=== PATIENT | female | born 1995 | race Hispanic/Latino ===

== ENCOUNTER 2021-12-11 17:51 | Emergency (ER) | payer BC, OTHER ==
--- OUTSIDE RECORDS SUMMARY | 2021-12-11 17:55 | XMS REPORT | Continuity of Care Document ---
:1995 Author Organization [facility] t Address [address] [place] [address] Dr. Singer. [address] [place] [address] Care Team Providers Name Role Phone KNOW, DOES_NOT Attending Clinician Unavailable Brittani Marrufo Attending Clinician Unavailable Seven Saini MD Attending Clinician SEVEN SAINI Attending Clinician Unavailable KNOW, DOES_NOT Admitting Clinician Unavailable Brittani Marrufo Admitting Clinician Unavailable Payers Payer Name Policy Type Policy Number Effective Date Expiration Date S ource Problems This patient has no known problems. Allergies, Adverse Reactions, Alerts Allergy Allergy Status Severity Reaction(s) Onset Inactive Treating Comm ents Source Name Type Date Date Clinician No Known DA Active U 2020-0 [facility] All[facility]ie 10-09 Clear s 00:00: Cloud [address] [facility] No Known DA Active U 2020-0 [facility] Allergie 10-09 Clear s 00:00: Cloud [address] [facility] NO KNOWN Drug Active Univers ALLERGIE Class ity of S [facility] Social History Social Habit Start Date Stop Date Quantity Comments Source Exposure to Not sure [facility] SARS-[facility]-2 (event) [facility] Sex Assigned At [birth year] [facility] 00:00:00 00:00:00 [facility] Smoking Status Start Date Stop Date Source Unknown if ever smoked [facility] Medications Ordered Filled Start Stop Current Ordering Indication Dosage Frequency Signature Comments Components Source Medication Medication Date Date Medication? Clinician (SIG) Name Name ondansetron Yes [id number] 4mg Take 1 Univers 4 mg 5-04 tablet by ity of disintegrat 00:00: mouth [place] ing tablet 00 every 4 Medica l (four) Branch hours as needed for Nausea and Vomiting (N/V). Immunizations Ordered Filled Immunization Date Status Comments Sourc e Immunization Name Name SARS-COV-2 COVID-19 2020-08-12 Completed Unive rsity of MODERNA VACCINE 00:00:00 [facility] SARS-COV-2 COVID-19 2020-07-15 Completed Unive rsity of MODERNA VACCINE 00:00:00 [facility] Vital Signs Vital Name Observation Time Observation Value Comments Source Systolic blood 2020-09-08 13:20:00 111 mm[Hg] Univer sity of pressure [facility] Diastolic blood 2020-09-08 13:20:00 74 mm[Hg] Unive rsity of pressure [facility] Heart rate 2020-09-08 13:20:00 92 /min [facility] Body temperature 2020-09-08 13:20:00 37.33 [facility] Respiratory rate 2020-09-08 13:20:00 16 /min [facility] Body height 2020-09-08 13:20:00 175.3 cm [facility] Body weight 2020-09-08 13:20:00 113.399 kg [facility] BMI 2020-09-08 13:20:00 36.92 kg/m2 [facility] Oxygen saturation in 2020-09-08 13:20:00 96 /min [facility] Arterial blood by [facility] Pulse oximetry Branch Procedures Procedure Date / Time Performed Performing Clinician Sour e NOTICE OF PRIVACY 2020-09-08 13:09:02 [facility]igned, [facility] CONSENT/REFUSAL FOR 2020-09-08 13:08:50 Doctor Unassigned, [facility] AND Name Medical Branch TREATMENT [id number] 2019-10-30 00:00:00 [facility] [id number] 2019-10-30 00:00:00 [facility] Encounters Start End Encounter Admission Attending Care Care Encounter Source Date/Time Date/Time Type Type Clinicians Facility Department ID 2019-10-31 Inpatient JACKELIN MATRINEZ LD [id number] [facility] 02:44:00 DOES_NOT [id number] [facility] 2019-10-29 Inpatient JACKELIN Ramírez LD [id number] [facility] 00:21:00 Brittani [id number] [facility] 2019-10-28 Inpatient JACKELIN Ramírez LD [id number] [facility] 13:57:00 Brittani [id number] [facility] 2019-10-10 Inpatient JACKELIN Marrufo KRISS [id number] [facility] 11:43:00 Brittani [facility] 2020-09-08 2020-09-08 [facility] [id number] Univers 08:23:00 09:06:00 Seven Parekh [id number] i [facility] [id number] [facility] [id number] [place] [address] Branch 2020-09-08 2020-09-08 Emergency X [facility] ERT [id number] Univers 08:23:00 08:23:00 SEVEN fair [facility] 2019-10-25 2019-10-25 Outpatient REED Marrufo LABO [id number] [facility] 18:04:00 18:04:00 Brittani [id number] [facility] 2019-10-24 2019-10-24 Emergency EM JACKELIN Marrufo KRISS [id number] [facility] 12:33:00 14:45:00 Brittani [id number] [facility] Results Test Description Test Time Test Comments Results Result Comments Source [facility] 2019-11-06 TRIMESTER 09:18:00 RUN DATE: 11/06/19 [facility] PAGE 1 RUN TIME: 1400 Specimen Inquiry RUN USER: INTERFACE CYRUS MCDONALDNT: RIANA MELISSA LOC: CHRISTIN U #: [id number] AGE/SX: ROOM: [facility] RE10/29/19REG DR: Brittani Marrufo MD : 89 BED: A DIS: 10/31/19 STATUS: DIS IN TLOC: SPEC #: [id number] RECD: 10/31/19-958 STATUS: MEÑODilia JIMENEZ #: [id number] LAINA: 10/30/19- [facility] DR: Brittani Marrufo MD ENTERED: 10/31/19 SP TYPE: PLACIII OTHR DR: Zofia Villalta MD ORDERED: LEVEL V SURGICA CODES: [id number] - PLACENTA, NOS COPIES TO: Zofia Villalta MD [address], [address] [place] [address] Brittani Marrufo MD [address] [place] [address] PROCEDURES: LEVEL V SURGICA (Incomplete) TISSUES: PLACENTA, NOS - PLACENTA CLINICAL HISTORY 24 year old, 39.6 weeks, , vaginal delivery, abnormal cord insertion (kr) FINAL DIAGNOSIS Placenta, delivery: - placenta with third trimester morphology (360 gms), mean placental weight at 39 weeks - 500 gms (approximately 7th percentile) - accelerated villous maturation with multifocal increase in the syncytial knots, suggestive of hypoperfusion - intervillous fibrin thrombi, multifocal, peripheral, accounting for less than 2% of the total placental parenchyma - trivascular umbilical cord with eccentric insertion, free of inflammation - membranes - free of inflammation CPT code(s): 42832 pk/wpd CONTINUED ON NEXT PAGE RUN DATE: 11/06/19 [facility] PAGE 2 RUN TIME: 1400 Specimen Inquiry RUN USER: INTERFACE SP EC #: [id number] PATIENT: RIANA MELISSA #[id number] (Continued)-------- -------- GROSS DESCRIPTION The specimen was received in a container, labeled with the patient's name, unit number and designated "placenta". The following attributes are observed: Cord insertion: 3.0 cm from margin Cord length: 30 cm Number of vessels: 3 Cord color: Guidry-white Other cord findings: None surface findings: Blue-dominguez, wrinkled, glistening Vasculature: Displays unremarkable blood vasculature Membranes rupture site: 7.0 cm to margin Membrane color: Guidry-pink Other membrane findings: Semi-translucent The trimmed placental weight: 360 gm Disk measurement: 15.5 x 13.0 x 3.5 cm in greatest dimension Accessory lobes: None Maternal surface: Lobulated and intact Parenchyma: Red-brown and spongy Parenchyma lesions: Multiple yellow-pink lesions ranging from 0.5 to 1.5 cm at the periphery, less than 2% of the total cut surface Cassettes: A1 through A4 tae/justus 10/31/19 MICROSCOPIC DESCRIPTION The placenta is composed of small vascular villi. Multifocal intervillous fibrin thrombi are present in the periphery. The trivascular umbilical cord and membranes are free of inflammation. pkg/wpd ---- Signed Silva Santana 11/06/19 0918 END OF REPORT Coronavirus 2019 nCoV Bedside 2019-10-29 08:13:00 Test Item Value Reference Range Interpretation Comme nts Coronavirus 2019 nCoV Bedside Negative Negative RESULTS CALLED TO SPEEDY LENNON (test code = COVNONPUIBED) & CONFIRMED? JAELYN MICHAELS.ELB1 10/29/19 0812 T his result does not rule out co-inf ections with otherpathogens. * False negative results may occ ur if a specimen isimproperly co llected, transported or handled. Fal se negativeresults may also occur if amplification inhibitors arep resent in the specimen or if inadequate levels of virusesare pres ent in the specimen. Negative result s should beconsidered in the context of a patient's recen t exposures,history and the presenc e of clinical signs and symptomscon sistent with COVID-19. * Neg ative results should be treated as p resumptive andtested with an alterna tive FDA authorized molecular assay if necessary for clinical managm ent, including infectioncontro l. * As with any molecular test, mutations within the target regions Landeros ID NOW COVID-19 test c ould affect primerand/or pr obe binding resulting in fa ilure to detect therescence of the virus.TEST PERFORMED UNDER AN EMERGENCY USE AUTHORIZATION F ROM FDA AG HEPATITIS B [id number] 04:55:00 Test Item Value Reference Range Interpretation Comments AG HEPATITIS B SURFACE (test code NONREACTIVE NONREACTIVE = HBSAG) IS CONSENT FORM SIGNED FOR HIV TESTING? YAB HEPATITIS C [id number] 04:55:00 Test Item Value Reference Range Interpretation Comments AB HEPATITIS C (test code = NONREACTIVE NONREACTIVE HCVAB) SIGNAL TO CUTOFF (test code = <0.02 <0.80 N CUTOFF) IS CONSENT FORM SIGNED FOR HIV TESTING? YAB [id number] 04:55:00 Test Item Value Reference Range Interpretation Comments AB TREPONEMA (test code = TREPAB) NONREACTIVE NONREACTIVE IS CONSENT FORM SIGNED FOR HIV TESTING? YAB HIV 1 04:55:00 Test Item Value Reference Range Interpretation Comments AB HIV 1 2 (test NONREACTIVE NONREACTIVE Done by [facility] code = [id number]) 4th Gen HIV Ag/Ab Combo Screen IS CONSENT FORM SIGNED FOR HIV TESTING? YAG HEPATITIS B [id number] 04:37:00 Test Item Value Reference Range Interpretation Comments AG HEPATITIS B SURFACE (test code NONREACTIVE NONREACTIVE = HBSAG) IS CONSENT FORM SIGNED FOR HIV TESTING? YAB HEPATITIS C [id number] 04:37:00 Test Item Value Reference Range Interpretation Comments AB HEPATITIS C (test code = HCVAB) NONREACTIVE SIGNAL TO CUTOFF (test code = CUTOFF) <0.80 IS CONSENT FORM SIGNED FOR HIV TESTING? YAB [id number] 04:37:00 Test Item Value Reference Range Interpretation Comments AB TREPONEMA (test code = TREPAB) NONREACTIVE NONREACTIVE IS CONSENT FORM SIGNED FOR HIV TESTING? YAB HIV 1 04:37:00 Test Item Value Reference Range Interpretation Comments AB HIV 1 2 (test code = [id number]) NONREACTIVE IS CONSENT FORM SIGNED FOR HIV TESTING? YCHEMISTRY 7 [id number] 01:14:00 Test Item Value Reference Range Interpretation Comments SODIUM (test code = NA) 139 mEq/L 135-145 N POTASSIUM (test code = K) 4.2 mEq/L 3.5-5.0 N CHLORIDE (test code = CL) 105 mEq/L 100-115 N CARBON DIOXIDE (test code = CO2) 21 mEq/L 22-31 L ANION GAP (test code = GAP) 16.80 10-20 N GLUCOSE (test code = GLU) 109 mg/dL 65-110 N BLOOD UREA NITROGEN (test code = 9 mg/dL 7-18 N BUN) GLOMERULAR FILTRATION RATE (test 103 ml/min >60 N code = GFR) CREATININE (test code = CREAT) 0.7 mg/dL 0.5-1.0 N CALCIUM (test code = CA) 8.6 mg/dL 8.4-10.2 N [id number] 01:14:00 Test Item Value Reference Range Interpretation Comments SGOT/AST (test code = AST) 16 units/L 15-37 N [id number] 01:14:00 Test Item Value Reference Range Interpretation Comments SGPT/ALT (test code = ALT) 11 units/L 12-78 L CBC W/AUTO [id number] 01:06:00 Test Item Value Reference Range Interpretation Comments WHITE BLOOD CELL (test code = WBC) 10.2 K/mm3 6.6-12.1 N RED BLOOD CELL (test code = RBC) 3.81 M/mm3 3.45-5.01 N HEMOGLOBIN (test code = HGB) 9.5 g/dL 10.7-13.9 L HEMATOCRIT (test code = HCT) 30.8 % 32.1-42.1 L MEAN CELL VOLUME (test code = MCV) 81 fL 84.1-94.8 L MEAN CELL HGB (test code = MCH) 24.9 pg 27-35 L MEAN CELL HGB CONCETRATION (test 30.8 gm/dL 32.2-34.1 L code = MCHC) RED CELL DISTRIBUTION WIDTH (test 15.7 % 12.4-16.5 N code = RDW) PLATELET COUNT (test code = PLT) 204 K/mm3 133-385 N MEAN PLATELET VOLUME (test code = 12.7 fl 9.1-12.7 N MPV) NEUTROPHIL % (test code = NT%) 69.8 % 56.5-79.4 N LYMPHOCYTE % (test code = LY%) 21.6 % 14.3-34.3 N MONOCYTE % (test code = MO%) 6.5 % 5.1-10.4 N EOSINOPHIL % (test code = EO%) 0.9 % 0.1-3.0 N BASOPHIL % (test code = BA%) 0.3 % 0.1-1.0 N NEUTROPHIL # (test code = NT#) 7.1 K/mm3 LYMPHOCYTE # (test code = LY#) 2.2 K/mm3 MONOCYTE # (test code = MO#) 0.7 K/mm3 EOSINOPHIL # (test code = EO#) 0.09 K/mm3 BASOPHIL # (test code = BA#) 0.0 K/mm3 RBC MORPHOLOGY REQUIRED (test code NORMAL NORMAL = RBCM) PLATELET MORPHOLOGY REQUIRED (test NORMAL NORMAL code = PLTMR) Novel Coronavirus 2019 [id number] 00:36:00 Test Item Value Reference Range Interpretation Comments Novel Coronavirus 2019 Inhouse (test Negative Negative code = COVNONPUI) Novel Coronavirus 2019 [id number] 00:36:00 Test Item Value Reference Range Interpretation Comments Novel Coronavirus 2019 Inhouse (test Negative Negative code = COVNONPUI) UR PROTEIN/CREATININE [id number] 13:54:00 Test Item Value Reference Range Interpretation Comments UR PROTEIN RANDOM (test code = 35.8 mg/dL PROTU) UR CREATININE RANDOM (test 342.1 mg/dL code = CREATU) PROTEIN/CREATININE RATIO (test 100.0 mg/gcrea <200 code = P/CRATIO) [id number] 13:54:00 Test Item Value Reference Range Interpretation Comments SGOT/AST (test code = AST) 11 units/L 15-37 L [id number] 13:54:00 Test Item Value Reference Range Interpretation Comments SGPT/ALT (test code = ALT) 10 units/L 12-78 L CBC W/AUTO [id number] 13:27:00 Test Item Value Reference Range Interpretation Comments WHITE BLOOD CELL (test code = WBC) 9.1 K/mm3 6.6-12.1 N RED BLOOD CELL (test code = RBC) 3.81 M/mm3 3.45-5.01 N HEMOGLOBIN (test code = HGB) 9.5 g/dL 10.7-13.9 L HEMATOCRIT (test code = HCT) 30.9 % 32.1-42.1 L MEAN CELL VOLUME (test code = MCV) 81 fL 84.1-94.8 L MEAN CELL HGB (test code = MCH) 24.9 pg 27-35 L MEAN CELL HGB CONCETRATION (test 30.7 gm/dL 32.2-34.1 L code = MCHC) RED CELL DISTRIBUTION WIDTH (test 15.9 % 12.4-16.5 N code = RDW) PLATELET COUNT (test code = PLT) 223 K/mm3 133-385 N MEAN PLATELET VOLUME (test code = 12.5 fl 9.1-12.7 N MPV) NEUTROPHIL % (test code = NT%) 79.7 % 56.5-79.4 H LYMPHOCYTE % (test code = LY%) 14.1 % 14.3-34.3 L MONOCYTE % (test code = MO%) 4.6 % 5.1-10.4 L EOSINOPHIL % (test code = EO%) 0.5 % 0.1-3.0 N BASOPHIL % (test code = BA%) 0.4 % 0.1-1.0 N NEUTROPHIL # (test code = NT#) 7.3 K/mm3 LYMPHOCYTE # (test code = LY#) 1.3 K/mm3 MONOCYTE # (test code = MO#) 0.4 K/mm3 EOSINOPHIL # (test code = EO#) 0.05 K/mm3 BASOPHIL # (test code = BA#) 0.0 K/mm3 RBC MORPHOLOGY REQUIRED (test code NORMAL NORMAL = RBCM) PLATELET MORPHOLOGY REQUIRED (test NORMAL NORMAL code = PLTMR) - US FET BIO PH OH W/O [id number] 13:45:00 Patient Name: RIANA MELISSA Unit No: [id number] EXAMS: CPT CODE: [id number] US FET BIO PH OH W/O NST [address] [facility] [address] [place], [place] [address] OBSTETRICAL BIOPHYSICAL ULTRASOUND REPORT Pat. Name: RIANA MELISSA Pat. No: [id number] Study Date: 10/10/2019 12:28pm , Age: 05 1995, 24 Pregnancies: 1 LMP: Unknown GA by US: 37w1d GA Selected: 37w0d (From Known E) TRE: 10/31/2019 Referring MD: BRITTANI MARRUFO Pododermatologist: Lizeth Saenz RDMS, T CPT4: USBPPWONST Admitting MD: BRITTANI MARRUFO Hist/Ind: SCAN 1 DECREASED MOVEMENT GROWTH MEASUREMENTS AGE GROWTH EVALUATION Measurement GA Range Srce %for GA Ratios ----- ---- ------- BPD 9.1 cm 37w3d (25g0y-80b4x) Hadl BPD 57% FL/BPD 0.80 (0.71 - 0.87) HC 33.3 cm 37w4d (91r3k-59i3o) Hadl HC 59% FL/AC0.22 (0.20 - 0.24) APD 10.3 cm APD HC/AC 1.00 (0.91 - 1.10) TAD 11.0 cm TAD CI 0.80 (0.70 - 0.86) AC33.5 cm 37w4d (48m9s-03x0o) Hadl AC 61% FL 7.3 cm 37w2d (55y5o-13g7w) Hadl FL 53% HL 6.4 cm 37w1d (05c1y-73o5j) Tripp HL 52% GA for sonogram 37w1d (09s3d-43k8q) Weight Estimate: based on (BPD,HC,AC,FL) Hadlock Weight: 3199 gm (1287-9468) Hadlo : 7lbs, 0oz Normal: 2870 gm (3815-7960) Brenn Wt% 72% for 37.0 wks Cervical Length: 3.2 cm Heart Rate: 150 bpm Amniotic Fluid Index: 11.0cm (07.5-24 .4) Q1: 2.7cm Q2: 4.3cm Q3: 1.9cm Q4: 2.1cm Biophysical Profile: 12/13 Breathin Tone: 2 Movement: 2 AFV: 2 DOPPLER Umbilical - Insertion S/D 3.10(2.80 - 3.80) Umbilical - Placental Insertion S/D 1.80(1.60 - 2.60) Umbilical - Mid Cord S/D 2.60 MATERNAL ANATOMY [facility] NAME: RIANA MELISSA Radiology Department PHYS: Brittani Marrufo [address] :1995 AGE: 24 SEX: F [place], [place] [address] LOC: HeatherKRISS PHONE #: [phone] EXAM DATE: 10/10/2019 STATUS: REG ER FAX #: [phone] RAD NO: Page 1 Signed Report (CONTINUED) Patient Name: RIANA MELISSA Unit No: [id number] EXAMS: CPT CODE: [id number] [facility] BIO PH OH W/O [id number] <Continued> Ovaries LxHxW (cm) Right 3.7 x 0.8 x 1.2 Vol: 1.9cc Left 3.5 x 1.3 x 2.2 Vol: 5.2cc CLINICAL SUMMARY Type of Gestation: Choe Intrauterine in vertex presentation. size is appropriate for gestational age. motion and organs seen: heart motion seen Placental location: Anterior Placental maturity : Grade 3 There is no evidence of placenta previa. Amniotic fluid volume is normal. Uterus and adnexa: No significant abnormality is seen. Umbilical artery doppler S/D ratio is normal. Gabriela Bojorquez M.D. --------- Electronic Signature 10/10/2019 01:45pm at 1345 Reported and signed by: Gabriela Bojorquez MD CC: Brittani Marrufo MD Technologist: Lizeth Saenz RDMS, RVT Probe: Trnscrbd D/ (1345) [email or web address] Orig Print D/T: S: 10/10/2019 (1345) [facility] NAME: RIANA MELISSA Radiology Department PHYS: Brittani Monet [address] : 1995 AGE: 24 SEX: F [place] [address] LOC: HeatherKRISS PHONE #: [phone] EXAM DATE: 10/10/2019 STATUS: REG ER FAX #: [phone] RAD NO: Page 2 Signed Report Patient Name: RIANA MELISSA Unit No: [id number] EXAMS: CPT CODE: [id number] USFET BIO PH OH W/O NST [address]69 <Continued> [facility] NAME: RIANA MELISSA Radiology Department PHYS: Peng Monett Sandra [address] : 1995 AGE: 24 SEX: F [place] [address] LOC: HeatherKRISS PHONE #: [phone] EXAM DATE: 10/10/2019 STATUS: REG ER FAX #: [phone] RAD NO: Page 3 Signed Report- US FLW [id number] 13:45:00 Patient Name: RIANA MELISSA Unit No: [id number] EXAMS: CPT CODE: [id number] [place] [address] [place] [address] OBSTETRICAL BIOPHYSICAL ULTRASOUND REPORT Pat. Name: Patrizia MELISSA. No: [id number] Study Date: 10/10/2019 12:28pm , Age: 05 1995, 24 Pregnancies: 1 LMP: Unknown GA by US: 37w1d GA Selected: 37w0d (From Known E) TRE: 10/31/2019 Referring MD: Brittani Marrufo Pododermatologist: Lizeth Saenz RDMS, T CPT4: USPREGFU Admitting MD: Brittani Marrufo Hist/Ind: SCAN 1 DECREASED MOVEMENT GROWTH MEASUREMENTS AGE GROWTH EVALUATION Measurement GA Range Srce %for GA Ratios ----- ---- ------- BPD 9.1 cm 37w3d (57c8c-69c8e) Hadl BPD 57% FL/BPD 0.80 (0.71 - 0.87) HC 33.3 cm 37w4d (88x3u-35j8g) Hadl HC 59% FL/AC 0.22 (0.20 - 0.24) APD 10.3 cm APD HC/AC 1.00 (0.91 - 1.10) TAD 11.0 cm TAD CI 0.80 (0.70 - 0.86) AC 33.5 cm 37w4d (84e3r-95v3r) Hadl AC 61% FL 7.3 cm 37w2d (75c0h-60o5n) Hadl FL 53% HL 6.4 cm 37w1d (95q8c-53m3k) Tripp HL 52% GA for sonogram 37w1d (06o7x-63e3k) Weight Estimate: based on (BPD,HC,AC,FL) Hadlock Weight: 3199 gm (8413-1807) Hadlo : 7lbs, 0oz Normal: 2870 gm (7002-6739) Brenn Wt% 72% for 37.0wks Cervical Length: 3.2 cm Heart Rate: 150 bpm Amniotic Fluid Index: 11.0cm (07.5-24.4) Q1: 2.7cm Q2: 4.3cm Q3: 1.9cm Q4: 2.1cm Biophysical Profile: 12/13 Breathin Tone: 2 Movement: 2 AFV: 2 -- DOPPLER Umbilical - Insertion S/D 3.10(2.80 - 3.80) Umbilical - Placental Insertion S/D 1.80(1.60 - 2.60) Umbilical - Mid CordS/D 2.60 MATERNAL ANATOMY [facility] NAME: RIANA MELISSA Radiology Department PHYS: Brittani Monet [address] : 1995 AGE: 24 SEX: [place] [address] LOC: HeatherKRISS PHONE #: [phone] EXAM DATE: 10/10/2019 STATUS: DEP ER FAX #: [phone] RAD NO: Page 1 Signed Report (CONTINUED) Patient Name: RIANA MELISSA Unit No: [id number] EXAMS: CPT CODE: [id number] [place] [address] <Continued> Ovaries LxHxW (cm) Right 3.7 x 0.8 x 1.2 Vol: 1.9cc Left 3.5 x 1.3 x 2.2 Vol: 5.2cc -------- CLINICAL SUMMARY Type of Gestation: Choe Intrauterine in vertex presentation. size is appropriate for gestational age. motion and organs seen: heart motion seen Placental location: Anterior Placental maturity : Grade 3 There is no evidence of placenta previa. Amniotic fluid volume is normal. Uterus and adnexa: No significant abnormality is seen. Umbilical artery doppler S/D ratio is normal. Gabriela Bojorquez M.D. Electronic Signature 10/10/2019 01:45pm at 1345 Reported and signed by: Gabriela Bojorquez MD CC: Brittani Marrufo MD Technologist: Lizeth Saenz RDMS, RVT Probe: Trnscrbd D/ (1857) Mee Orig Print D/T: S: 10/11/2019 (5974) [facility] [place] [facility] NAME: RIANA MELISSA Radiology Department PHYS: J LUIS Mahoney [place] vas[place]ales [address] : 1995 AGE: 24 SEX: F [place], [place] [address] LOC: F.KRISS PHONE #: [phone] EXAM DATE: 10/10/2019 STATUS: DEP ER FAX #: [phone] RAD NO: Page 2 Signed Report Patient Name: RIANA MELISSA Unit No: [id number] EXAMS: CPT CODE: [id number] [place] [address] <Continued> [facility] NAME: RIANA MELISSA Radiology Department PHYS: BERTHA. - Brittani Marrufo [address] : 1995 AGE: 24 SEX: F [place], [place] [address] LOC: HeatherKRISS PHONE #: [phone] EXAM DATE: 10/10/2019 STATUS: DEP ER FAX #: [phone] RAD NO: Page 3 Signed Report- DOP VELOCITY UMBILCL [id number] 13:45:00 Patient Name: RIANA MELISSA Unit No: [id number] EXAMS: CPT CODE: [id number] DOP VELOCITY UMBILCL ART [address] [facility] [address] [place], [place] [address] OBSTETRICAL BIOPHYSICAL ULTRASOUND REPORT Pat. Name: RIANA MELISSA Pat. No: [id number] Study Date: 10/10/2019 12:28pm , Age: 05 1995, 24 Pregnancies: 1 LMP: Unknown GA by US: 37w1d GA Selected: 37w0d (From Known E) TRE: 10/31/2019 Referring MD: Brittani Marrufo Pododermatologist: Lizeth Saenz RDMS, RVT CPT4: COOPER Admitting MD: Brittani Marrufo Hist/Ind: SCAN 1 DECREASED MOVEMENT GROWTH MEASUREMENTS AGE GROWTH EVALUATION Measurement GA Range Srce %for GA Ratios ----- ---- ------- BPD 9.1 cm 37w3d (29x0v-99i8e) Hadl BPD 57% FL/BPD 0.80 (0.71 - 0.87) HC 33.3 cm 37w4d (17y0m-53b9v) Hadl HC 59% FL/AC0.22 (0.20 - 0.24) APD 10.3 cm APD HC/AC 1.00 (0.91 - 1.10) TAD 11.0 cm TAD CI 0.80 (0.70 - 0.86) AC33.5 cm 37w4d (35w1d- 40w1d) Hadl AC 61% FL 7.3 cm 37w2d (94x5f-33r4h) Hadl FL 53% HL 6.4 cm 37w1d (34 o0a-74g0x) Tripp HL 52% GA for sonogram 37w1d (21e5p-34r6y) Weight Estimate: based on (BPD,HC,AC,FL) Hadlock Weight: 3199 gm (1410-4884) Hadlo : 7lbs, 0oz Normal: 2870 gm (6162-4664) Brenn Wt% 72% for 37.0 wks Cervical Length: 3.2 cm Heart Rate: 150 bpm Amniotic Fluid Index: 11.0cm (07.5-24 .4) Q1: 2.7cm Q2: 4.3cm Q3: 1.9cm Q4: 2.1cm Biophysical Profile: 12/13 Breathin Tone: 2 Movement: 2 AFV: 2 DOPPLER Umbilical - Insertion S/D 3.10(2.80 - 3.80) Umbilical - Placental Insertion S/D 1.80(1.60 - 2.60) Umbilical - Mid Cord S/D 2.60 MATERNAL ANATOMY [facility] NAME: RIANA MELISSA Radiology Department PHYS: [facility] Brittani Marrufo [address] :1995 AGE: 24 SEX: F [place], [place] [address] LOC: [email or web address] PHONE #: [phone] EXAM DATE: 10/10/2019 STATUS: ABEL FAX #: [phone] RAD NO: Page 1 Signed Report (CONTINUED)Patient Name: RIANA MELISSA Unit No: [id number] EXAMS: CPT CODE: [id number] DOP VELOCITY UMBILCL ART 06844 <Continued> Ovaries LxHxW (cm) Right 3.7 x 0.8 x 1.2 Vol: 1.9cc Left 3.5 x 1.3 x 2.2 Vol: 5.2cc CLINICAL SUMMARY Type of Gestation: Choe Intrauterine in vertex presentation. size is appropriate for gestational age. motionand organs seen: heart motion seen Placental location: Anterior Placental maturity : Grade 3 There is no evidence of placenta previa. Amniotic fluid volume is normal. Uterus and adnexa: No significant abnormality is seen. Umbilical artery doppler S/D ratio is normal. Gabriela Bojorquez M.D. -------- Electronic Signature 10/10/2019 01:45pm at 1345 Reported and signed by: Gabriela Bojorquez MD CC: Brittani Marrufo MD Technologist: Lizeth Saenz RDMS, RVT Probe: Trnscrbd D/ (1345) [email or web address] Orig Print D/T: S: 10/11/2019 ([id number]) [facility] NAME: MELISSARIANA Radiology Department PHYS: Brittani Monet [address] : 1995 AGE: 24 SEX: [place] [address] LOC: [place] PHONE #: [phone] EXAM DATE: 10/10/2019 STATUS: DEP FAX #: [phone] RAD NO:Page 2 Signed Report Patient Name: RIANA MELISSA Unit No: [id number] EXAMS: CPT CODE: [id number] DOPVELOCITY UMBILCL ART 45237 <Continued> [facility] NAME: MELISSA,RIANA Radiology Department PHYS: Brittani Monet [address] : 1995 AGE: 24 SEX: [place] [address] LOC: [place] PHONE #: [phone] EXAM DATE: 10/10/2019 STATUS: DEP ER FAX #: [phone] RAD NO: Page 3 Signed Report
[2021-12-11] MEDS ORDERED: NA CHLORIDE 0.9% 1,000 ML ONE (18:34)
[2021-12-11] MEDS ORDERED: ONDANSETRON 4 MG/2 ML VIAL ONE (18:34)
[2021-12-11 18:50] LABS: Absolute Lymphocytes (CBC) 1.2 K/uL (0.7-4.9); Hematocrit 37.1 % (36.0-45.0); Lymphocytes % 7.2 % (15.3-44.8); MCV 80.3 fL (80-100); MPV 9.2 fL (7.6-11.3); RBC Red Blood Cell Count 4.62 M/uL (3.86-4.86)
[2021-12-11 19:13] LABS: Potassium 3.5 mmol/L (3.5-5.1)
[2021-12-11 19:35] LABS: Urine Blood Trace-intact (Negative); Urine Glucose Negative (Negative); Urine Protein 1+ (Negative)
[2021-12-11] MEDS ORDERED: IBUPROFEN 400 MG TAB ONE (21:34)
--- NOTE | 2021-12-11 22:12 | EDPHYS ---
Physician Documentation [facility] Name: Lulu Christensen Age: 26 yrs Sex: Female : 1995 Arrival Date: 12/11/2021 Time: 17:54 Bed 18 Private MD: ED Physician Rick Early HPI: 12/11 23:12 This 26 yrs old Female presents to ER via Ambulatory with complaints of kb covid+, Vomiting. 23:12 The patient or guardian reports cough, that is intermittent, described as mild, flu kb symptoms, low-grade fever, myalgias. Onset: The symptoms/episode began/occurred yesterday. Severity of symptoms: At their worst the symptoms were mild, moderate, in the emergency department the symptoms are unchanged. Modifying factors: The symptoms are alleviated by nothing, the symptoms are aggravated by nothing. Associated signs and symptoms: Pertinent positives: fever, nausea, sore throat, vomiting, Pertinent negatives: chest pain, diarrhea, ear ache, rhinorrhea. The patient has not experienced similar symptoms in the past. The patient has been recently seen at an urgent care. Patient reports she was diagnosed with COVID today, given Paxlovid. States she had nausea and vomiting after taking first dose. Is also feeling worse.. 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 - Social history:: Smoking status: Patient denies any tobacco usage or history of. ROS: 23:10 Cardiovascular: Negative for chest pain, palpitations, and edema. kb 23:10 Constitutional: Positive for body aches, chills, fatigue, fever, malaise. 23:10 ENT: Positive for sore throat. 23:10 Respiratory: Positive for cough, Negative for dyspnea on exertion, hemoptysis, orthopnea, pleurisy, shortness of breath, sputum production, wheezing. 23:10 Abdomen/GI: Positive for nausea and vomiting. 23:10 Neuro: Positive for headache. 23:10 All other systems are negative. Exam: 23:10 Constitutional: This is a well developed, well nourished patient who is awake, alert, kb and in no acute distress. Head/Face: Normocephalic, atraumatic. Cardiovascular: Regular rate and rhythm with a normal S1 and S2. No gallops, murmurs, or rubs. No pulse deficits. Respiratory: Respirations even and unlabored. No increased work of breathing. Talking in full sentences Abdomen/GI: Soft, non-tender. No distention Skin: Warm, dry with normal turgor. Normal color. MS/ Extremity: Pulses equal, no cyanosis. Neurovascular intact. Full, normal range of motion. Neuro: Awake and alert, GCS 15, oriented to person, place, time, and situation. Moves all extremities. Normal gait. Psych: Awake, alert, with orientation to person, place and time. Behavior, mood, and affect are within normal limits. 23:10 ENT: Posterior pharynx: Airway: normal, Tonsils: bilaterally enlarged, with erythema, with exudate, Uvula: normal, midline, swelling, that is moderate, erythema, that is moderate, exudate, that is moderate. Vital Signs: 18:04 BP 124 / 81; Pulse 120; Resp 18; Temp 99.9; Pulse Ox 100% ; Weight 108.86 kg; Height 5 ap3 ft. 10 in. (177.80 cm); 18:13 BP 118 / 54; Pulse 124; Resp 18; Pulse Ox 98% on R/A; tp1 21:18 BP 116 / 69; Pulse 101; Resp 19 S; Temp 99.4(O); Pulse Ox 99% on R/A; lg3 22:21 BP 119 / 72; Pulse 98; Resp 18 S; Temp 98.9(O); Pulse Ox 99% on R/A; lg3 18:04 Body Mass Index 34.44 (108.86 kg, 177.80 cm) ap3 MDM: 18:11 Patient medically screened. kb 23:10 Data reviewed: vital signs, nurses notes. Data interpreted: Pulse oximetry: on room air kb is 99 %. Interpretation: normal. Counseling: I had a detailed discussion with the patient and/or guardian regarding: the historical points, exam findings, and any diagnostic results supporting the discharge/admit diagnosis, lab results, the need for outpatient follow up, a family practitioner, to return to the emergency department if symptoms worsen or persist or if there are any questions or concerns that arise at home. 23:13 ED course: Patient tolerating p.o. intake, feeling better.. kb 12/11 18:12 Order name: CBC with Diff; Complete Time: 18:59 kb 12/11 18:12 Order name: Basic Metabolic Panel; Complete Time: 19:13 kb 12/11 19:35 Order name: Urine Dipstick-Ancillary; Complete Time: 19:35 EDMS 12/11 20:39 Order name: Urine --Ancillary (enter results); Complete Time: 21:02 ds4 12/11 21:12 Order name: Strep; Complete Time: 22:06 kb 12/11 18:12 Order name: IV Start; Complete Time: 18:46 kb 12/11 18:12 Order name: Urine Dipstick-Ancillary (obtain specimen); Complete Time: 19:37 kb 12/11 19:37 Order name: Urine Test (obtain specimen); Complete Time: 19:37 lg3 12/11 21:12 Order name: Vital Signs; Complete Time: 21:20 kb Administered Medications: 18:33 Drug: NS 0.9% 1000 ml Route: IV; Rate: 1000 ml; Site: left antecubital; tp1 22:20 Follow up: Response: No adverse reaction; IV Status: Completed infusion; IV Intake: lg3 1000ml 18:34 Drug: Zofran (Ondansetron) 4 mg Route: IVP; Site: left antecubital; tp1 19:35 Follow up: Response: No adverse reaction lg3 21:28 Drug: Ibuprofen 800 mg Route: PO; lg3 22:14 Follow up: Response: No adverse reaction lg3 22:14 Drug: Augmentin (Amoxicillin-Clavulanate) 875 mg Route: PO; lg3 22:14 Follow up: Response: No adverse reaction lg3 Disposition: 12/12 06:18 Co-signature as Attending Physician, Rick Early MD. [email or web address] Disposition Summary: 12/11/21 22:07 Discharge Ordered Location: Home kb Condition: Stable kb Diagnosis - Streptococcal pharyngitis kb - Coronavirus infection, unspecified kb Followup: kb - With: Emergency Department - When: As needed - Reason: Worsening of condition Followup: kb - With: Private Physician - When: 2 - 3 days - Reason: Recheck today's complaints, Continuance of care, Re-evaluation by your physician Discharge Instructions: - Discharge Summary Sheet kb - Strep Throat, Adult, [id number] kb - Viral Respiratory Infection, [id number] kb - COVID-19 kb Forms: - Medication Reconciliation Form kb - Thank You Letter kb - Antibiotic Education kb - Prescription Opioid Use kb Prescriptions: - Augmentin 875-125 mg Oral Tablet - take 1 tablet by ORAL route every 12 hours for 10 days; 20 tablet; Refills: 0, kb Product Selection Permitted - Zofran 4 mg Oral Tablet - take 1 tablet by ORAL route every 6 hours As needed; 20 tablet; Refills: 0, kb Product Selection Permitted Signatures: Dispatcher [employer] EDJanet Burnett FNP-C FNP-Ckb Prokisch, Amanda RN RN ap3 Joanne Schuster RN RN lg3 Rick Early MD MD 7 Shirley Snyder RN RN tp1
--- NOTE | 2021-12-11 22:12 | ER ---
Nurse's Notes [facility] Name: Lulu Christensen Age: 26 yrs Sex: Female : 1995 Arrival Date: 12/11/2021 Time: 17:54 Bed 18 Private MD: Diagnosis: Streptococcal pharyngitis;Coronavirus infection, unspecified Presentation: 12/11 18:04 Chief complaint: Patient states: she tested positive for COVID this morning at an ap3 urgent care. patient states she "feels bad", has vomited three times, and believes she is now dehydrated. Patient states she was prescribed Paxlovid, but threw it up immediately because "it was gross". Coronavirus screen: Client reports previous positive COVID test result. Date of collection: December 11, 2021. Ebola Screen: No symptoms or risks identified at this time. Initial Sepsis Screen: Does the patient meet any 2 criteria? HR > 90 bpm. Does the patient have a suspected source of infection? No. Patient's initial sepsis screen is negative. Risk Assessment: Do you want to hurt yourself or someone else? Patient reports no desire to harm self or others. Onset of symptoms was December 10, 2021. 18:04 Method Of Arrival: Ambulatory ap3 18:04 Acuity: JAILYN 3 ap3 Triage Assessment: 18:06 General: Appears ill, Behavior is calm, cooperative. General: Reports chills for fever ap3 for feeling ill for fatigue for. Pain: Complains of pain in generalized body aches. Neuro: Level of Consciousness is awake, alert, obeys commands, Oriented to person, place, time, situation. Cardiovascular: Patient's skin is warm and dry. Respiratory: Reports cough that is Airway is patent Respiratory effort is even, unlabored, Respiratory pattern is regular, symmetrical. GI: Reports nausea, vomiting. 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 - Social history:: Smoking status: Patient denies any tobacco usage or history of. Screenin:07 Abuse screen: Denies threats or abuse. Nutritional screening: No deficits noted. ap3 Tuberculosis screening: No symptoms or risk factors identified. 18:13 Fall Risk IV access (20 points). Ambulatory Aid- None/Bed Rest/Nurse Assist (0 pts). tp1 Gait- Normal/Bed Rest/Wheelchair (0 pts) Mental Status- Oriented to own ability (0 pts). Total Flores Fall Scale indicates No Risk (0-24 pts). Assessment: 18:41 General: Appears in no apparent distress. uncomfortable, Behavior is calm, cooperative. tp1 Pain: Complains of pain in abdomen Pain does not radiate. Pain currently is 8 out of 10 on a pain scale. Quality of pain is described as flipping Pain began today after taking paxlovid provided by urgent care Is intermittent. Neuro: Level of Consciousness is awake, alert, obeys commands, Oriented to person, place, time, situation. Neuro: Reports dizziness, headache. Cardiovascular: Patient's skin is warm and dry. Respiratory: Airway is patent Respiratory effort is even, unlabored. GI: Abdomen is round non-distended, Abd is soft and non tender X 4 quads. Reports nausea, vomiting. : No signs and/or symptoms were reported regarding the genitourinary system. EENT: No signs and/or symptoms were reported regarding the EENT system. Derm: Skin is pink, warm \\T\\ dry. Musculoskeletal: Circulation, motion, and sensation intact. 19:38 General: Appears in no apparent distress. comfortable, Behavior is calm, cooperative. lg3 Pain: Complains of pain in abdomen Pain currently is 4 out of 10 on a pain scale. Neuro: No deficits noted. Level of Consciousness is awake, alert, obeys commands, Oriented to person, place, time, situation. Cardiovascular: No deficits noted. Denies chest pain, Capillary refill < 3 seconds Clubbing of nail beds is absent JVD is absent Patient's skin is warm and dry. Respiratory: No deficits noted. Airway is patent Trachea midline Respiratory effort is even, unlabored, Respiratory pattern is regular, symmetrical. GI: No deficits noted. No signs and/or symptoms were reported involving the gastrointestinal system. Abdomen is round non-distended, Abd is soft and non tender X 4 quads. : No deficits noted. No signs and/or symptoms were reported regarding the genitourinary system. EENT: No deficits noted. No signs and/or symptoms were reported regarding the EENT system. Derm: No deficits noted. No signs and/or symptoms reported regarding the dermatologic system. Skin is intact, is healthy with good turgor, Skin is dry, Skin temperature is warm. Musculoskeletal: No deficits noted. No signs and/or symptoms reported regarding the musculoskeletal system. Circulation, motion, and sensation intact. Range of motion: intact in all extremities. 20:38 Reassessment: Patient appears in no apparent distress at this time. No changes from lg3 previously documented assessment. Patient and/or family updated on plan of care and expected duration. Pain level reassessed. Patient is alert, oriented x 3, equal unlabored respirations, skin warm/dry/pink. 22:21 Reassessment: Patient appears in no apparent distress at this time. No changes from lg3 previously documented assessment. Patient and/or family updated on plan of care and expected duration. Pain level reassessed. Patient is alert, oriented x 3, equal unlabored respirations, skin warm/dry/pink. Patient states feeling better. Vital Signs: 18:04 BP 124 / 81; Pulse 120; Resp 18; Temp 99.9; Pulse Ox 100% ; Weight 108.86 kg; Height 5 ap3 ft. 10 in. (177.80 cm); 18:13 BP 118 / 54; Pulse 124; Resp 18; Pulse Ox 98% on R/A; tp1 21:18 BP 116 / 69; Pulse 101; Resp 19 S; Temp 99.4(O); Pulse Ox 99% on R/A; lg3 22:21 BP 119 / 72; Pulse 98; Resp 18 S; Temp 98.9(O); Pulse Ox 99% on R/A; lg3 18:04 Body Mass Index 34.44 (108.86 kg, 177.80 cm) ap3 ED Course: 17:54 Patient arrived in ED. as 18:06 Triage completed. ap3 18:07 Arm band placed on left wrist. ap3 18:11 [facility]C [facility]. kb 18:11 Rick Early MD is Attending Physician. kb 18:13 Bed in low position. Call light in reach. Adult w/ patient. tp1 18:13 No provider procedures requiring assistance completed. tp1 18:21 Shirley Snyder, RN is Primary Nurse. tp1 18:30 Inserted saline lock: 20 gauge in left antecubital area, using aseptic technique. Blood tp1 collected. 20:38 Family accompanied patient. lg3 21:52 Strep Sent. lg3 22:20 IV discontinued, intact, bleeding controlled, No redness/swelling at site. Pressure lg3 dressing applied. Administered Medications: 18:33 Drug: NS 0.9% 1000 ml Route: IV; Rate: 1000 ml; Site: left antecubital; tp1 22:20 Follow up: Response: No adverse reaction; IV Status: Completed infusion; IV Intake: lg3 1000ml 18:34 Drug: Zofran (Ondansetron) 4 mg Route: IVP; Site: left antecubital; tp1 19:35 Follow up: Response: No adverse reaction lg3 21:28 Drug: Ibuprofen 800 mg Route: PO; lg3 22:14 Follow up: Response: No adverse reaction lg3 22:14 Drug: Augmentin (Amoxicillin-Clavulanate) 875 mg Route: PO; lg3 22:14 Follow up: Response: No adverse reaction lg3 Medication: 18:13 VIS not applicable for this client. tp1 Intake: 22:20 IV: 1000ml; Total: 1000ml. lg3 Outcome: 22:07 Discharge ordered by . kb 22:20 Discharged to home ambulatory, with family. lg3 22:20 Condition: stable 22:20 Discharge instructions given to patient, Instructed on discharge instructions, follow up and referral plans. medication usage, Demonstrated understanding of instructions, follow-up care, medications, Prescriptions given X 2. 22:33 Patient left the ED. lg3 Signatures: Janet Seay, MARCIANO-C MEDICAL COST CONSULTANT-Neelima Abarca Amanda RN RN ap3 Joanne Schuster RN RN lg3 Shirley Snyder, JONE RN tp1
[2021-12-11] MEDS ORDERED: AMOX/K CLAV 875 MG TAB ONE (22:20)
== END 2021-12-11 22:33 | disposition home or self-care (01) ==
LOC: ER 17:51
DX: J02.0 Streptococcal pharyngitis (principal); U07.1 COVID-19
CPT/HCPCS: 96361; 85025; 80048; 36415; 81025; 87081; 81003; 96374; 99284; J7030; J2405